=== PATIENT | female | born 1965 | race Caucasian/White ===

== ENCOUNTER 2018-01-22 01:36 | Day surgery (SDC) | payer BC ==
[2015-02-02 15:59] VITALS: Ht 162.6 cm; Wt 58.5 kg
[~2018-01-22] VITALS: Ht 162.6 cm; Wt 58.5 kg
[~2018-01-22 01:36] MED LIST: BUPR-126 PO; BUPR200T34 PO; DICL-195 PO; GABA-549 PO; LOSA100T63 PO; METH500T6 PO; MULT-1335 PO; MULT-7; QUET200T PO; TRAZ150T8 PO
[2018-01-22] MEDS ORDERED: PROPOFOL EMUL(*) 10MG/ML 20 ML 60 ML ONE (12:00)
[2018-01-22] MEDS ORDERED: LIDOCAINE MPF 1% 5 ML VIAL ONE (12:00)
[2018-01-22 12:40] VITALS: BP 87/67
[2018-01-22] MEDS ORDERED: LIDOCAINE/SOD BICARB 8.4% SYR ID ONE (12:45)
[2018-01-22] MEDS ORDERED: NORMOSOL R SOLN(*) 1000 ML BAG 1,000 ML IV PRN (12:45)
[2018-01-22] MEDS ORDERED: MIDAZOLAM 2 MG/2 ML VIAL IVP PRN (12:45)
[2018-01-22 15:30] VITALS: BP 118/71
--- NOTE | 2018-01-22 15:39 | Short(Outpt) Discharge Summary ---
Discharge Summary Reason for Hosp/Final Diag: (1) Epigastric abdominal pain Status: Chronic Hospital Course & Plan: EGD with biopsies and colonoscopy with biopsies completed without problems. (2) Diarrhea Status: Chronic Departure Discharge to: Home, Self Care Discharge Instructions Home Meds Reported Medications Methylcellulose (FIBER) 500 Mg Tablet, 500 MG PO DAILY 01/21/18 Trazodone Hcl (TRAZODONE HCL) 150 Mg Tablet, 150 MG PO QHS Y for SLEEP 01/21/18 Gabapentin (GABAPENTIN) 300 Mg Capsule, 300 MG PO TID, CAPSULE 01/21/18 Multivitamin With Minerals (MULTIPLE VITAMIN) 1 Each Tablet, 1 EACH PO DAILY, TAB 07/22/17 Bupropion HCl (Bupropion HCl ER) 200 Mg Tablet.er, 150 MG PO BIDBL 07/18/17 Losartan Potassium (COZAAR) 100 Mg Tablet, 100 MG PO QDAY 07/18/17 Diet: Regular Activity: As Tolerated Special Instructions: Arleen, my office nurse, will call you tomorrow to schedule the upper GI and small bowel follow through x-ray study with you and she'll schedule a follow up appointment to see me back in my office for after the x-ray study is completed. Problem Qualifiers (1) Diarrhea: Diarrhea type: unspecified type Qualified Codes: R19.7 - Diarrhea, unspecified LYDIA CONNOLLY MD Jan 22, 2018 15:39
[2018-01-22 15:54] VITALS: BP 140/85
[2018-01-22] MEDS ORDERED: PANT40TA65 PO (15:54)
[2018-01-22 16:21] VITALS: BP 136/86
[2018-01-22 16:45] VITALS: BP 124/81
[2018-01-22 16:47] VITALS: BP 119/85
--- NOTE | 2018-01-22 21:12 | OPERATIVE REPORT 1 ---
EVENT DATE: January 22, 2018 SURGEON: Ishaan Fink MD ANESTHESIOLOGIST: Kanu Jacques MD ANESTHESIA: TIVA. PREOPERATIVE DIAGNOSES 1. Epigastric abdominal pain. 2. Chronic diarrhea. POSTOPERATIVE DIAGNOSES 1. Epigastric abdominal pain. 2. Diarrhea. 3. Gastritis. PROCEDURES PERFORMED 1. Esophagogastroduodenoscopy with biopsies. 2. Colonoscopy with biopsies. COMPLICATIONS None. CONDITION Stable. BLOOD LOSS Minimal. FINDINGS This patient had diffuse gastritis. She also had evidence of a Kirby fundoplication which she did not report to me preoperatively. Her upper GI endoscopy procedure was otherwise unremarkable. Colonoscopy was significant only for a small polyp at the rectosigmoid junction. This was removed and sent to Pathology. Prep was excellent. SPECIMENS 1. Duodenum. 2. Pyloritek. 3. Gastric inflammation. 4. Random colon. 5. Rectum. 6. Rectosigmoid polyp. INDICATIONS This is a 52-year-old female who presented to my office with an eight-month history of epigastric abdominal pain and watery diarrhea. She had never undergone an endoscopic procedure before and was requesting to have this evaluated with the EGD and colonoscopy. DESCRIPTION OF PROCEDURE The patient was brought to the operating room and placed in the left lateral decubitus position on the procedure table. TIVA was administered, and a bite block was placed in her mouth. The endoscope was obtained and tested to make sure it was completely functional. It was lubricated and inserted into her mouth through the bite block. I advanced the scope all the way through to the third portion of the duodenum and slowly withdrew the scope as I looked at all mucosal surfaces for any abnormalities. I took two samples of the second portion of the duodenum and two samples of the duodenal bulb, and these were sent labeled duodenum. I took three samples of the gastric antrum, and these were sent for Pyloritek. I took two samples of the gastric antrum which appeared grossly inflamed, and these were sent labeled gastric inflammation. Gross inspection of the stomach revealed evidence of a previous fundoplication procedure. No other abnormalities were seen within the stomach. I withdrew the scope into the esophagus, and the GE junction was inspected. This was unremarkable. No evidence of Neal esophagus or other abnormalities. The entire esophagus looked normal, and the vocal cords looked symmetric and grossly normal. The scope was withdrawn from the mouth. Then, the colonoscope was set up and tested to ensure it was completely functional. It was lubricated and inserted directly into anus. I advanced the scope all the way through to the cecum without any problems. I slowly withdrew the scope as I slowly looked at all mucosal surfaces for any abnormalities. I did biopsies throughout the colon and sent them labeled random colon biopsies and one sample of the rectum labeled rectal biopsy. There was a small polyp at the rectosigmoid junction which I removed with a snare and then cauterized the biopsy site. I retroflexed the scope in the rectum to look at the distal rectum and upper anal canal, and this was unremarkable. I then straightened the scope out and desufflated the colon. I removed the colonoscope from her rectum. She was then transported back to the recovery area in good condition having tolerated the procedures without any apparent problems. RAMANDEEP
== END 2018-01-22 17:01 ==
LOC: OR 01:36
PROVIDERS: ATTEND Surgery
DX: K29.70 Gastritis, unspecified, without bleeding (principal)
CPT/HCPCS: 00811; 43239; 45380; 45385; 87077; 88305; 88344; J2001; J2704

== ENCOUNTER → 2018-02-02 | Outpatient (CLI) | payer BC ==
[2015-02-02 15:59] VITALS: BMI 29.9
[~2018-02-02] MED LIST changes: +BARIUM SULFATE 176 GM BTL PO ONE; +BARIUM SULFATE 340 GM POWD ONE; +PANT40TA65 PO
--- NOTE | 2018-02-02 17:41 | RADIOLOGY IMAGING REPORT ---
FACILITY: [facility] - [place] PATIENT NAME: Hiral Marcum : 1965 MR: [id number] V: [id number] EXAM DATE: ORDERING PHYSICIAN: LYDIA CONNOLLY TECHNOLOGIST: Location: [facility] - [place] Patient: Hiral Marcum : 1965 Visit/Account:[id number] Date of Sevice: 02/02/2018 Exam type: UPPER GI W/SMALL BOWEL SERIES History: Abdomen pain, diarrhea, unintentional weight loss Comparison: None. Findings: Double contrast upper GI series was performed with thick and thin barium. The patient is status post prior hiatal hernia repair. There is moderate narrowing at the distal esophagus. A 12 mm barium ta blet did not pass into readily the stomach and was only noticed to pass into the gastric fundus on th e one hour and 15 minutes small bowel image. No gastroesophageal reflux was observed. Remainder of the stomach appeared unremarkable. Barium was followed throughout the small bowel to the unremarkabl e terminal ileum. Transit time to the right-sided colon was five hours. No mucosal abnormality of t he small bowel was noted. Numerous diverticula were however identified throughout the small bowel. The fluoroscopy dose area product was 1377.12 micro-Marroquin per meter squared IMPRESSION: 1. Postsurgical changes from a prior hiatal hernia repair with moderate narrowing of the distal esop hagus. A 12 mm barium tablet did not readily pass into the stomach and was only noticed to pass into the stomach on the delayed one hour and 15 minute small bowel image. No gastroesophageal reflux was observed Numerous diverticula are seen throughout the small bowel. Transit time to the right-sided the colon was five hours Report Dictated By: Eunice Sterling MD at 02/02/2018 5:33 PM Report E-Signed By: Eunice Sterling MD at 02/02/2018 5:38 PM WSN:[email or web address]
== END ==
LOC: RAD 03:59
PROVIDERS: ATTEND Surgery
DX: K22.2 Esophageal obstruction (principal); Z98.890 Other specified postprocedural states; K57.12 Diverticulitis of small intestine without perforation or abscess without bleeding
CPT/HCPCS: 74245

== ENCOUNTER → 2018-03-13 | Outpatient (REF) | payer OTHER, BC ==
[2015-02-02 15:59] VITALS: BMI 29.9
[~2018-03-13] MED LIST changes: -BARIUM SULFATE 176 GM BTL PO ONE; -BARIUM SULFATE 340 GM POWD ONE
== END ==
PROVIDERS: ATTEND Physician Assistant Medical
DX: B35.1 Tinea unguium (principal); N39.9 Disorder of urinary system, unspecified
CPT/HCPCS: 82040; 82247; 82310; 82374; 82435; 82565; 82947; 84075; 84132; 84155; 84295; 84450; 84460; 84520; 87088; 87103; 87210; 87252

== ENCOUNTER → 2018-03-15 | Outpatient (REF) | payer OTHER, BC ==
[2015-02-02 15:59] VITALS: BMI 29.9
== END ==
PROVIDERS: ATTEND Family Medicine
DX: R30.0 Dysuria (principal)
CPT/HCPCS: 87088

== ENCOUNTER → 2018-03-15 | Outpatient (REF) | payer OTHER, BC ==
[2015-02-02 15:59] VITALS: BMI 29.9
== END ==
PROVIDERS: ATTEND Family Medicine
DX: R52 Pain, unspecified (principal); B37.9 Candidiasis, unspecified
CPT/HCPCS: 87071; 87252

== ENCOUNTER → 2019-04-05 | Outpatient (REF) | payer SELFPAY ==
[2015-02-02 15:59] VITALS: BMI 29.9
[~2019-04-05] MED LIST changes: +FLUC150T40 PO
== END ==
LOC: ZZSENDIN 18:30
PROVIDERS: ATTEND Obstetrics & Gynecology
DX: N89.8 Other specified noninflammatory disorders of vagina (principal)
CPT/HCPCS: 87210

== ENCOUNTER 2019-04-24 15:37 | Emergency (ER) | payer SELFPAY ==
[2015-02-02 15:59] VITALS: Wt 68.0 kg
[2019-04-24] MEDS ORDERED: METO50TA19 PO (15:54)
--- NOTE | 2019-04-24 15:54 | ER Report ---
History and Physical Time Seen By MD: 15:54 Hx. of Stated Complaint: nausea, just changed bp medications HPI/ROS CHIEF COMPLAINT: Nausea HISTORY OF PRESENT ILLNESS: 54-year-old female patient presents to emergency room with complaint of nausea. Patient states that she had her blood pressure medication altered on Friday of this past week. She states they added metoprolol. She states that since then she's been having nausea, diarrhea, dizziness, lightheadedness. She discussed this with her primary care provider on Friday. They recommended changing it to a nighttime dose and cut it in half. She states she's had persistent symptoms since then. She states that she is nauseated all the time, but states she is not able to vomit. She states she is not had any fevers or chills. She states she is not taking any medication for this. REVIEW OF SYSTEMS: Respiratory: No cough, no dyspnea. Cardiovascular: No chest pain, no palpitations. Gastrointestinal: As noted above Musculoskeletal: No back pain. Allergies: Coded Allergies: Penicillins (Verified Allergy, Mild, RASH, 04/24/19) Uncoded Allergies: dill weed (Allergy, Mild, 02/01/15) Home Meds Active Scripts Ondansetron 4 Mg Odt (ONDANSETRON 4 MG ODT) 4 Mg Tab.rapdis, 4 MG PO Q6H PRN for NAUSEA/VOMITING, #20 TAB Prov:JACQUIE GONZALEZ [facility] 04/24/19 Levofloxacin 500 Mg Tab (LEVAQUIN 500 MG TAB) 500 Mg Tablet, 500 MG PO DAILY, #10 TAB Prov:JACQUIE GONZALEZ [facility] 04/24/19 Omeprazole (OMEPRAZOLE) 40 Mg Capsule.dr, 40 MG PO BID, #20 CAP Prov:JACQUIE GONZALEZ [facility] 04/24/19 Metronidazole (METRONIDAZOLE) 500 Mg Tablet, 500 MG PO BID, #20 TAB Prov:JACQUIE GONZALEZ [facility] 04/24/19 Reported Medications Metoprolol Succinate (METOPROLOL SUCCINATE) 50 Mg Tab.er.24h, 1 TAB PO QDAY, TAB 04/24/19 Trazodone Hcl (TRAZODONE HCL) 150 Mg Tablet, 150 MG PO QHS PRN for SLEEP 01/21/18 Gabapentin (GABAPENTIN) 300 Mg Capsule, 300 MG PO TID, CAPSULE 01/21/18 Bupropion HCl (Bupropion HCl ER) 200 Mg Tablet.er, 150 MG PO BIDBL 07/18/17 Losartan Potassium (COZAAR) 100 Mg Tablet, 100 MG PO QDAY 07/18/17 Discontinued Scripts Fluconazole (DIFLUCAN) 150 Mg Tablet, 1 TAB PO NOW, #2 TAB Take one tab now and repeat in three days. Prov:TIANA GILES MD 04/05/19 Pantoprazole Sodium (PANTOPRAZOLE SODIUM) 40 Mg Tablet.dr, 1 TAB PO DAILY, #30 TAB 3 Refills Take 1 tablet first thing every morning and don't eat anything for 30 minutes Prov:LYDIA CONNOLLY MD 01/22/18 Past Medical/Surgical History Patient has a past medical history of angina, hypertension, hiatal hernia, kidney stones, frequent UTI, back fracture, anxiety. Patient has a surgical history of repair of hiatal hernia, EGD, cholecystectomy, surgery for an ovarian cyst, tubal ligation, surgery on fingers and toes secondary to frostbite. Reviewed Nurses Notes: Yes Hx Smoking: Yes (SMOKES 1/2 PPD SINCE AGE 17) Smoking Status: Current: Every Day Smoker Exposure to Second Hand Smoke?: No Hx Substance Use Disorder: Yes Hx Alcohol Use: No Constitutional Vital Sign - Last 24 Hours 04/24/19 15:48 Temp 97.9 Pulse 88 Resp 16 B/P (MAP) 126/92 Pulse Ox 91 Physical Exam General Appearance: The patient is alert, has no immediate need for airway protection and no current signs of toxicity. Respiratory: Chest is non tender, lungs are clear to auscultation. Cardiac: regular rate and rhythm Gastrointestinal: Abdomen is soft and non tender, no masses, bowel sounds normal. Musculoskeletal: Neck: Neck is supple and non tender. Extremities have full range of motion and are non tender. Skin: No rashes or lesions. DIFFERENTIAL DIAGNOSIS: After history and physical exam differential diagnosis was considered for nausea and vomiting including but not limited to gastroenteritis, gastritis, appendicitis, and medication side effect. Medical Decision Making Data Points Result Diagram: 04/24/19 1610 04/24/19 1610 Laboratory Hematology Test 04/24/19 15:41 04/24/19 16:10 Urine Color Yellow Urine Clarity Slightly-cloudy Urine pH 5.0 pH (4.8-9.5) Urine Specific Underwood 1.018 Urine Protein Negative mg/dL (NEGATIVE) Urine Glucose (UA) Negative mg/dL (NEGATIVE) Urine Ketones Trace mg/dL (NEGATIVE) Urine Blood Large (NEGATIVE) Urine Nitrite Positive (NEGATIVE) Urine Bilirubin Negative (NEGATIVE) Urine Urobilinogen Negative mg/dL (0.2-1.9) Urine Leukocyte Esterase Negative (NEGATIVE) Urine RBC 15 /HPF (0-2/HPF) Urine WBC 9 /HPF (0-5/HPF) Urine Squamous Epithelial Cells Many /LPF (</=FEW) Urine Bacteria Moderate /HPF (NONE-FEW) Urine Hyaline Casts Moderate /LPF (NONE-FEW) Urine Mucus Few /HPF (NONE-FEW) Urine Yeast (Budding) Few /HPF Red Blood Count 4.79 M/uL (4.17-5.56) Mean Corpuscular Volume 97.3 fL (80.0-96.0) Mean Corpuscular Hemoglobin 33.2 pg (26.0-33.0) Mean Corpuscular Hemoglobin Concent 34.1 g/dL (32.0-36.0) Red Cell Distribution Width 14.5 % (11.5-14.5) Mean Platelet Volume 7.7 fL (7.2-11.1) Neutrophils (%) (Auto) 48.4 % (39.4-72.5) Lymphocytes (%) (Auto) 43.3 % (17.6-49.6) Monocytes (%) (Auto) 6.7 % (4.1-12.4) Eosinophils (%) (Auto) 0.4 % (0.4-6.7) Basophils (%) (Auto) 1.2 % (0.3-1.4) Nucleated RBC Relative Count (auto) 0.1 /100WBC Neutrophils # (Auto) 2.7 K/uL (2.0-7.4) Lymphocytes # (Auto) 2.4 K/uL (1.3-3.6) Monocytes # (Auto) 0.4 K/uL (0.3-1.0) Eosinophils # (Auto) 0.0 K/uL (0.0-0.5) Basophils # (Auto) 0.1 K/uL (0.0-0.1) Nucleated RBC Absolute Count (auto) 0.00 K/uL Sodium Level 140 mmol/L (137-145) Potassium Level 3.9 mmol/L (3.5-5.0) Chloride Level 106 mmol/L (98-107) Carbon Dioxide Level 22 mmol/L (22-31) Blood Urea Nitrogen 11 mg/dl (7-18) Creatinine 1.00 mg/dl (0.52-1.04) Glomerular Filtration Rate Calc 58.2 Random Glucose 82 mg/dl (75-110) Calcium Level 8.8 mg/dl (8.4-10.2) Total Bilirubin 0.3 mg/dl (0.2-1.3) Aspartate Amino Transf (AST/SGOT) 84 U/L (0-35) Alanine Aminotransferase (ALT/SGPT) 57 U/L (0-56) Alkaline Phosphatase 111 U/L (0-126) Total Protein 6.8 g/dl (6.3-8.2) Albumin 4.0 g/dl (3.5-5.0) Amylase Level 59 U/L (0-110) Lipase 46 U/L (23-300) Helicobacter pylori IgG Antibody Positive (NEGATIVE) Chemistry Test 04/24/19 15:41 04/24/19 16:10 Urine Color Yellow Urine Clarity Slightly-cloudy Urine pH 5.0 pH (4.8-9.5) Urine Specific Underwood 1.018 Urine Protein Negative mg/dL (NEGATIVE) Urine Glucose (UA) Negative mg/dL (NEGATIVE) Urine Ketones Trace mg/dL (NEGATIVE) Urine Blood Large (NEGATIVE) Urine Nitrite Positive (NEGATIVE) Urine Bilirubin Negative (NEGATIVE) Urine Urobilinogen Negative mg/dL (0.2-1.9) Urine Leukocyte Esterase Negative (NEGATIVE) Urine RBC 15 /HPF (0-2/HPF) Urine WBC 9 /HPF (0-5/HPF) Urine Squamous Epithelial Cells Many /LPF (</=FEW) Urine Bacteria Moderate /HPF (NONE-FEW) Urine Hyaline Casts Moderate /LPF (NONE-FEW) Urine Mucus Few /HPF (NONE-FEW) Urine Yeast (Budding) Few /HPF White Blood Count 5.5 k/uL (4.5-11.0) Red Blood Count 4.79 M/uL (4.17-5.56) Hemoglobin 15.9 g/dL (12.0-16.0) Hematocrit 46.6 % (34.0-47.0) Mean Corpuscular Volume 97.3 fL (80.0-96.0) Mean Corpuscular Hemoglobin 33.2 pg (26.0-33.0) Mean Corpuscular Hemoglobin Concent 34.1 g/dL (32.0-36.0) Red Cell Distribution Width 14.5 % (11.5-14.5) Platelet Count 332 K/uL (150-450) Mean Platelet Volume 7.7 fL (7.2-11.1) Neutrophils (%) (Auto) 48.4 % (39.4-72.5) Lymphocytes (%) (Auto) 43.3 % (17.6-49.6) Monocytes (%) (Auto) 6.7 % (4.1-12.4) Eosinophils (%) (Auto) 0.4 % (0.4-6.7) Basophils (%) (Auto) 1.2 % (0.3-1.4) Nucleated RBC Relative Count (auto) 0.1 /100WBC Neutrophils # (Auto) 2.7 K/uL (2.0-7.4) Lymphocytes # (Auto) 2.4 K/uL (1.3-3.6) Monocytes # (Auto) 0.4 K/uL (0.3-1.0) Eosinophils # (Auto) 0.0 K/uL (0.0-0.5) Basophils # (Auto) 0.1 K/uL (0.0-0.1) Nucleated RBC Absolute Count (auto) 0.00 K/uL Glomerular Filtration Rate Calc 58.2 Calcium Level 8.8 mg/dl (8.4-10.2) Total Bilirubin 0.3 mg/dl (0.2-1.3) Aspartate Amino Transf (AST/SGOT) 84 U/L (0-35) Alanine Aminotransferase (ALT/SGPT) 57 U/L (0-56) Alkaline Phosphatase 111 U/L (0-126) Total Protein 6.8 g/dl (6.3-8.2) Albumin 4.0 g/dl (3.5-5.0) Amylase Level 59 U/L (0-110) Lipase 46 U/L (23-300) Helicobacter pylori IgG Antibody Positive (NEGATIVE) Urinalysis Test 04/24/19 15:41 Urine Color Yellow Urine Clarity Slightly-cloudy Urine pH 5.0 pH (4.8-9.5) Urine Specific Underwood 1.018 Urine Protein Negative mg/dL (NEGATIVE) Urine Glucose (UA) Negative mg/dL (NEGATIVE) Urine Ketones Trace mg/dL (NEGATIVE) Urine Blood Large (NEGATIVE) Urine Nitrite Positive (NEGATIVE) Urine Bilirubin Negative (NEGATIVE) Urine Urobilinogen Negative mg/dL (0.2-1.9) Urine Leukocyte Esterase Negative (NEGATIVE) Urine RBC 15 /HPF (0-2/HPF) Urine WBC 9 /HPF (0-5/HPF) Urine Squamous Epithelial Cells Many /LPF (</=FEW) Urine Bacteria Moderate /HPF (NONE-FEW) Urine Hyaline Casts Moderate /LPF (NONE-FEW) Urine Mucus Few /HPF (NONE-FEW) Urine Yeast (Budding) Few /HPF EKG/Imaging Imaging ACUTE ABDOMEN SERIES 3 VIEW COMPARISON: None. HISTORY: nausea Chest findings: CARDIAC/VASC: No cardiac silhouette abnormality or cardiomegaly. Unremarkable pulmonary vasculature. MEDIASTINUM: No visible mass or adenopathy. LUNGS/PLEURA: No pneumothorax. No significant pulmonary parenchymal abnormalities. No effusion or pleural thickening. BONES: No fracture or visible bony lesion. OTHER:Negative. Abdomen findings: BOWEL GAS PATTERN: Unremarkable. No abnormal dilation or deviation. Cholecystectomy clips in the right upper quadrant. No appreciable free air on the upright view. SOFT TISSUES: No masses or organomegaly. CALCIFICATIONS: None significant. No radiopaque urinary tract calculi. There are phleboliths in the pelvis bilaterally. BONES: Mild lumbar spine degenerative changes and levoscoliosis.No fractures or suspicious osseous lesions. OTHER: Negative. No abnormal gaseous collections. IMPRESSION: No acute cardiopulmonary process. Normal bowel gas pattern. Prior cholecystectomy. Report Dictated By: Phan Phan at 04/24/2019 5:08 PM Report E-Signed By: Phan Phan at 04/24/2019 5:10 PM ED Course/Re-evaluation ED Course Patient was admitted to an exam room, history and physical were obtained. Differential diagnoses were considered. On examination lungs are clear, heart is regular, abdomen is soft and nontender. An IV was started, patient received a liter of normal saline as well as 4 mg Zofran. Improvement with her nausea. A CBC, CMP, urinalysis, H. pylori, amylase, lipase, acute abdominal x-rays were done. Lab results were positive for H. pylori infection, possible urinary tract infection. She had positive nitrites, 9 white blood cells per high-power field, which did have large skin cells in her urine. We will go ahead and culture her urine. X-ray results were negative. I discussed the findings with the patient. We will go ahead and treat her for her H. pylori infection. Due to clarithromycin not having any impact on the urinary system we will go ahead and treat her with Levaquin daily for 10 days. We'll also do metronidazole, omeprazole and Zofran as needed for nausea and vomiting. I would like patient to stop taking her metoprolol. She is to increase her fluid intake. She is to follow-up with her primary care provider on Friday to discuss alternatives for her blood pressure. Patient verbalized understanding and agreement with plan. Decision to Disposition Date: April 24, 2019 Decision to Disposition Time: 17:33 Depart Departure Latest Vital Signs Vital Signs Date Time Temp Pulse Resp B/P (MAP) Pulse Ox O2 Delivery O2 Flow Rate FiO2 04/24/19 15:48 97.9 88 16 126/92 91 Impression: Primary Impression: H. pylori infection Additional Impression: UTI (urinary tract infection) Condition: Improved Disposition: HOME OR SELF-CARE New Scripts Ondansetron 4 Mg Odt (ONDANSETRON 4 MG ODT) 4 Mg Tab.rapdis 4 MG PO Q6H PRN for NAUSEA/VOMITING, #20 TAB Prov: JACQUIE GONZALEZP 04/24/19 Levofloxacin 500 Mg Tab (LEVAQUIN 500 MG TAB) 500 Mg Tablet 500 MG PO DAILY, #10 TAB Prov: JACQUIE GONZALEZP 04/24/19 Omeprazole (OMEPRAZOLE) 40 Mg Capsule.dr 40 MG PO BID, #20 CAP Prov: JACQUIE GONZALEZP 04/24/19 Metronidazole (METRONIDAZOLE) 500 Mg Tablet 500 MG PO BID, #20 TAB Prov: JACQUIE GONZALEZ 04/24/19 Patient Instructions: Helicobacter Pylori (ED) Additional Instructions: Increase fluid intake. Get plenty of rest. Follow up with your primary care provider in the next week, Friday. Return to the ER if condition worsens. Take medication as prescribed. Stop taking your metoprolol. Problem Qualifiers Additional Impression: UTI (urinary tract infection) Urinary tract infection type: acute cystitis Hematuria presence: without hematuria Qualified Codes: N30.00 - Acute cystitis without hematuria JACQUIE GONZALEZ April 24, 2019 15:54
[2019-04-24] MEDS ORDERED: NS(*) 0.9% 1000 ML BAG 1,000 ML IV ONE (16:01)
[2019-04-24] MEDS ORDERED: ONDANSETRON 4 MG/2 ML VIAL IVP ONE ×2 (16:05→17:40)
[2019-04-24 16:25] LABS: PLATELET COUNT, AUTOMATED 332 K/uL (150-450)
--- NOTE | 2019-04-24 17:14 | RADIOLOGY IMAGING REPORT ---
FACILITY: [facility] - [place] PATIENT NAME: Hiral Marcum : 1965 MR: [id number] V: [id number] EXAM DATE: ORDERING PHYSICIAN: JACQUIE GONZALEZ TECHNOLOGIST: Location: [facility] Patient: Hiral Marcum : 1965 Visit/Account:[id number] Date of Sevice: 04/24/2019 ACUTE ABDOMEN SERIES 3 VIEW COMPARISON: None. HISTORY: nausea Chest findings: CARDIAC/VASC: No cardiac silhouette abnormality or cardiomegaly. Unremarkable pulmonary vasculatu re. MEDIASTINUM: No visible mass or adenopathy. LUNGS/PLEURA: No pneumothorax. No significant pulmonary parenchymal abnormalities. No effusion or p leural thickening. BONES: No fracture or visible bony lesion. OTHER:Negative. Abdomen findings: BOWEL GAS PATTERN: Unremarkable. No abnormal dilation or deviation. Cholecystectomy clips in the r ight upper quadrant. No appreciable free air on the upright view. SOFT TISSUES: No masses or organomegaly. CALCIFICATIONS: None significant. No radiopaque urinary tract calculi. There are phleboliths in the pelvis bilaterally. BONES: Mild lumbar spine degenerative changes and levoscoliosis.No fractures or suspicious osseous l esions. OTHER: Negative. No abnormal gaseous collections. IMPRESSION: No acute cardiopulmonary process. Normal bowel gas pattern. Prior cholecystectomy. Report Dictated By: Phan Phan at 04/24/2019 5:08 PM Report E-Signed By: Phan Phan at 04/24/2019 5:10 PM WSN:[id number]
[2019-04-24 17:30] VITALS: BP 129/109
[2019-04-24] MEDS ORDERED: ONDA4TAB9 PO (17:32)
[2019-04-24] MEDS ORDERED: METR500T15 PO (17:32)
[2019-04-24] MEDS ORDERED: LEVO-85 PO (17:32)
[2019-04-24] MEDS ORDERED: OMEP40CA48 PO (17:32)
== END 2019-04-24 17:51 | disposition home or self-care (01) ==
LOC: ER 15:39
DX: B96.81 Helicobacter pylori [H. pylori] as the cause of diseases classified elsewhere (principal); N30.00 Acute cystitis without hematuria
CPT/HCPCS: 74022; 81001; 82150; 83690; 85025; 86677; 87077; 87088; 87186; 96361; 96374; 96376; 99284; J2405; J7030; 82040; 82247; 82310; 82374; 82435; 82565; 82947; 84075; 84132; 84155; 84295; 84450; 84460; 84520

== ENCOUNTER 2019-06-14 14:46 | Emergency (ER) | payer SELFPAY ==
[2015-02-02 15:59] VITALS: Wt 68.0 kg
[~2019-06-14 14:46] MED LIST changes: +LEVO-85 PO; +METO50TA19 PO; +METR500T15 PO; +OMEP40CA48 PO; +ONDA4TAB9 PO
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
[2019-06-14] MEDS ORDERED: NS(*) 0.9% 1000 ML BAG 1,000 ML IV ONE (15:28)
[2019-06-14] MEDS ORDERED: PROMETHAZINE 25 MG/ML 1 ML AMP IVP ONE ×2 (15:30→16:45)
[2019-06-14 15:36] LABS: PLATELET COUNT, AUTOMATED 245 K/uL (150-450)
--- NOTE | 2019-06-14 16:50 | RADIOLOGY IMAGING REPORT ---
FACILITY: [facility] - [place] PATIENT NAME: Hiral Marcum : 1965 MR: [id number] V: [id number] EXAM DATE: ORDERING PHYSICIAN: EM ROMAN TECHNOLOGIST: Location: [facility] - [place] Patient: Hiral Marcum : 1965 Visit/Account:[id number] Date of Sevice: 06/14/2019 Acute abdomen series: HISTORY: Severe nausea, diarrhea, intermittent abdominal pain COMPARISON: 04/24/2019 FINDINGS: Upright and supine views of the abdomen and frontal view the chest was obtained. Bowel gas pattern is nonspecific without evidence of ileus, obstruction or free air. There are no air -fluid levels. Bowel is not dilated. Surgical clips are present in the right upper quadrant. Cardiomediastinal silhouette is within normal limits. There is no infiltrate or pleural effusion. No pneumothorax. Pulmonary vasculature is normal. IMPRESSION: 1. Nonspecific bowel gas pattern. There is no evidence of ileus or obstruction. 2. No evidence of acute cardiopulmonary abnormality. Report Dictated By: Arleen Rosales MD at 06/14/2019 4:43 PM Report E-Signed By: Arleen Rosales MD at 06/14/2019 4:45 PM WSN:[id number]
[2019-06-14 17:30] VITALS: BP 139/74
[2019-06-14] MEDS ORDERED: PROM-110 PO (17:38)
[2019-06-14] MEDS ORDERED: NITR-105 PO (17:38)
[2019-06-14] MEDS ORDERED: NITROFURANTOIN MONO 100 MG PO ONE (17:40)
== END 2019-06-14 18:01 | disposition home or self-care (01) ==
LOC: ER 14:49
DX: N30.01 Acute cystitis with hematuria (principal); R11.0 Nausea
CPT/HCPCS: 74022; 81001; 83690; 85025; 96374; 96376; 99284; J2550; J7030; 82040; 82247; 82310; 82374; 82435; 82565; 82947; 84075; 84132; 84155; 84295; 84450; 84460; 84520

== ENCOUNTER 2019-06-15 05:13 | Emergency (ER) | payer SELFPAY ==
[2015-02-02 15:59] VITALS: Wt 68.0 kg
[~2019-06-15 05:13] MED LIST changes: +NITR-105 PO; +PROM-110 PO
[2019-06-15] MEDS ORDERED: diphenhydrAMINE 50 MG/ML VIAL IVP ONE (05:30)
[2019-06-15] MEDS ORDERED: NS(*) 0.9% 1000 ML BAG 1,000 ML IV ONE (05:30)
[2019-06-15] MEDS ORDERED: PROMETHAZINE HCL 12.5 MG SUPP PR ONE (05:30)
[2019-06-15] MEDS ORDERED: ONDANSETRON 4 MG ODT TABDP SL ONE (05:30)
[2019-06-15] MEDS ORDERED: cefTRIAXone(*) 1 GM VIAL 1 GM in NS(*) 0.9% 100 ML MINI-BAG 100 ML IVPB ONE (05:30)
--- NOTE | 2019-06-15 05:33 | ER Report ---
History and Physical Time Seen By MD: 05:28 Hx. of Stated Complaint: PT REPORTS INABILITY TO PUKE SINCE HAVING A SURGERY BUT REPORTS VOMITING A LITTLE. PT REPORTS DIARRHEA. HPI/ROS CHIEF COMPLAINT: Still sick, dry heaving HISTORY OF PRESENT ILLNESS: This is a 54-year-old female. She was seen here in the ER yesterday. Had nausea and dry heaving, improved with Phenergan and fluids. Diagnosed with urinary tract infection. She did not go get her medicines yesterday and now has worsened tonight. She was going to pick her medicine up today. Same symptoms as previously. Allergies: Coded Allergies: Penicillins (Verified Allergy, Mild, RASH, 06/14/19) Uncoded Allergies: dill weed (Allergy, Mild, 02/01/15) Home Meds Active Scripts Promethazine Hcl (PROMETHAZINE HCL) 25 Mg Tablet, 25 MG PO Q8H, #12 TAB Prov:EM ROMAN [facility] 06/14/19 Nitrofurantoin Monohyd/M-Cryst (MACROBID 100 MG CAPSULE) 100 Mg Capsule, 100 MG PO BID for 5 Days, #10 CAPSULE 0 Refills Prov:EM ROMAN [facility] 06/14/19 Omeprazole (OMEPRAZOLE) 40 Mg Capsule.dr, 40 MG PO BID, #20 CAP Prov:JACQUIE GONZALEZ [facility] 04/24/19 Reported Medications Trazodone Hcl (TRAZODONE HCL) 150 Mg Tablet, 150 MG PO QHS PRN for SLEEP 01/21/18 Gabapentin (GABAPENTIN) 300 Mg Capsule, 300 MG PO TID, CAPSULE 01/21/18 Losartan Potassium (COZAAR) 100 Mg Tablet, 100 MG PO QDAY 07/18/17 Discontinued Reported Medications Metoprolol Succinate (METOPROLOL SUCCINATE) 50 Mg Tab.er.24h, 1 TAB PO QDAY, TAB 04/24/19 Bupropion HCl (Bupropion HCl ER) 200 Mg Tablet.er, 150 MG PO BIDBL 07/18/17 Discontinued Scripts Ondansetron 4 Mg Odt (ONDANSETRON 4 MG ODT) 4 Mg Tab.rapdis, 4 MG PO Q6H PRN for NAUSEA/VOMITING, #20 TAB Prov:JACQUIE GONZALEZ [facility] 04/24/19 Levofloxacin 500 Mg Tab (LEVAQUIN 500 MG TAB) 500 Mg Tablet, 500 MG PO DAILY, #10 TAB Prov:JACQUIE GONZALEZ [facility] 04/24/19 Metronidazole (METRONIDAZOLE) 500 Mg Tablet, 500 MG PO BID, #20 TAB Prov:JACQUIE GONZALEZ [facility] 04/24/19 Reviewed Nurses Notes: Yes Hx Smoking: Yes (SMOKES 1/2 PPD SINCE AGE 17) Smoking Status: Current: Every Day Smoker Exposure to Second Hand Smoke?: No Hx Substance Use Disorder: Yes Hx Alcohol Use: No Constitutional Vital Sign - Last 24 Hours 06/15/19 06/15/19 06/15/19 06/15/19 05:17 05:18 05:28 05:30 Temp 98.7 Pulse 79 70 Resp 20 B/P (MAP) 154/125 (135) 154/125 179/98 (125) Pulse Ox 96 91 O2 Delivery Room Air 06/15/19 06/15/19 06/15/19 06/15/19 05:43 05:58 06:00 06:13 Pulse 58 63 65 B/P (MAP) 168/98 (121) Pulse Ox 93 94 97 06/15/19 06/15/19 06:18 06:30 Pulse 62 B/P (MAP) 168/111 (130) Pulse Ox 93 Intake and Output 06/14/19 06/14/19 06/15/19 15:02 23:02 07:02 Intake Total 1100 ml Balance 1100 ml Physical Exam General Appearance: Alert, acute distress with coughing and dry heaving with ongoing nausea. ENT: Normal oral mucosa, with moist mucous membranes. Respiratory: Chest is non tender, lungs are clear to auscultation. Cardiac: regular rate and rhythm, normal peripheral perfusion Gastrointestinal: Abdomen is soft, discomfort throughout, no masses, bowel sounds normal. No CVA tenderness. Musculoskeletal: Extremities have full range of motion. Skin: No rashes or lesions. Neuro: Alert and oriented 3. No focal deficits. DIFFERENTIAL DIAGNOSIS: After history and physical exam differential diagnosis was considered for ongoing nausea with dry heaving similar to yesterday in a patient with a urinary tract infection without treatment. We'll give her further nausea medicine. Start with an oral dissolving Zofran to help us get a IV placed and the we'll give her Phenergan and Benadryl as well as a liter of normal saline. Another urine has been sent so we can get a urine culture as it was not done yesterday. I we will go ahead and start her with one dose of IV Rocephin this morning as well and then she will get the Macrobid as prescribed yesterday. Medical Decision Making Data Points Result Diagram: 06/15/19 0547 06/15/19 0547 Laboratory Hematology Test 06/15/19 05:47 White Blood Count 5.3 k/uL (4.5-11.0) Red Blood Count 4.55 M/uL (4.17-5.56) Hemoglobin 15.4 g/dL (12.0-16.0) Hematocrit 44.1 % (34.0-47.0) Mean Corpuscular Volume 96.9 fL (80.0-96.0) H Mean Corpuscular Hemoglobin 33.7 pg (26.0-33.0) H Mean Corpuscular Hemoglobin Concent 34.8 g/dL (32.0-36.0) Red Cell Distribution Width 14.5 % (11.5-14.5) Platelet Count 224 K/uL (150-450) Mean Platelet Volume 8.0 fL (7.2-11.1) Neutrophils (%) (Auto) 72.6 % (39.4-72.5) H Lymphocytes (%) (Auto) 15.1 % (17.6-49.6) L Monocytes (%) (Auto) 11.8 % (4.1-12.4) Eosinophils (%) (Auto) 0.0 % (0.4-6.7) L Basophils (%) (Auto) 0.5 % (0.3-1.4) Nucleated RBC Relative Count (auto) 0.0 /100WBC Neutrophils # (Auto) 3.8 K/uL (2.0-7.4) Lymphocytes # (Auto) 0.8 K/uL (1.3-3.6) L Monocytes # (Auto) 0.6 K/uL (0.3-1.0) Eosinophils # (Auto) 0.0 K/uL (0.0-0.5) Basophils # (Auto) 0.0 K/uL (0.0-0.1) Nucleated RBC Absolute Count (auto) 0.00 K/uL Chemistry Test 06/15/19 05:47 Sodium Level 136 mmol/L (137-145) Potassium Level 3.7 mmol/L (3.5-5.0) Chloride Level 99 mmol/L (98-107) Carbon Dioxide Level 25 mmol/L (22-31) Blood Urea Nitrogen 14 mg/dl (7-18) Creatinine 0.90 mg/dl (0.52-1.04) Glomerular Filtration Rate Calc > 60.0 Random Glucose 165 mg/dl (75-110) Calcium Level 9.3 mg/dl (8.4-10.2) Total Bilirubin 1.8 mg/dl (0.2-1.3) Aspartate Amino Transf (AST/SGOT) 53 U/L (0-35) Alanine Aminotransferase (ALT/SGPT) 53 U/L (0-56) Alkaline Phosphatase 142 U/L (0-126) Total Protein 7.6 g/dl (6.3-8.2) Albumin 4.5 g/dl (3.5-5.0) Urinalysis Test 06/15/19 05:19 Urine Color [place]uma Urine Clarity Slightly-cloudy Urine pH 6.0 pH (4.8-9.5) Urine Specific [place] 1.020 Urine Protein 100 mg/dL (NEGATIVE) Urine Glucose (UA) Negative mg/dL (NEGATIVE) Urine Ketones 20 mg/dL (NEGATIVE) Urine Blood Negative (NEGATIVE) Urine Nitrite Negative (NEGATIVE) Urine Bilirubin Negative (NEGATIVE) Urine Urobilinogen 4.0 mg/dL (0.2-1.9) Urine Leukocyte Esterase Trace (NEGATIVE) Urine RBC 3 /HPF (0-2/HPF) Urine WBC 7 /HPF (0-5/HPF) Urine Squamous Epithelial Cells Many /LPF (</=FEW) Urine Transitional Epithelial Cells Many /LPF (NONE-FEW) Urine Bacteria Few /HPF (NONE-FEW) Urine Hyaline Casts Few /LPF (NONE-FEW) Urine Mucus Few /HPF (NONE-FEW) ED Course/Re-evaluation Clinical Indication for ER IV: Hydration, IV Access ED Course Labs show some increase in liver function tests. Recommended follow-up with primary care for repeat labs and re-evaluation to make sure she is improving. [place] much better after Phenergan and a liter of normal saline. Also gave the Rocephin. 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 Decision to Disposition Date: Jun 15, 2019 Decision to Disposition Time: 06:16 Depart Departure Latest Vital Signs Vital Signs Date Time Temp Pulse Resp B/P (MAP) Pulse Ox O2 Delivery O2 Flow Rate FiO2 06/15/19 06:30 168/111 (130) 06/15/19 06:18 62 93 06/15/19 05:18 98.7 20 Room Air Impression: Primary Impression: UTI (urinary tract infection) Additional Impression: Nausea and vomiting Condition: Improved Disposition: HOME OR SELF-CARE Patient Instructions: Urinary Tract Infection in Women (ED) Additional Instructions: Fill the prescriptions from you visit yesterday. Make sure to do that this morning. Rest and increase fluid intake. Follow-up with your regular doctor later this week or early next week for re- evaluation. Problem Qualifiers Primary Impression: UTI (urinary tract infection) Urinary tract infection type: acute cystitis Hematuria presence: without hematuria Qualified Codes: N30.00 - Acute cystitis without hematuria Additional Impression: Nausea and vomiting Vomiting type: unspecified Vomiting Intractability: non-intractable Qualified Codes: R11.2 - Nausea with vomiting, unspecified JENNIFER ARGUETA MD Jun 15, 2019 05:33
[2019-06-15] MEDS ORDERED: PROMETHAZINE 25 MG/ML 1 ML AMP IVP ONE (05:40)
[2019-06-15 06:01] LABS: PLATELET COUNT, AUTOMATED 224 K/uL (150-450)
[2019-06-15 06:30] VITALS: BP 168/111
== END 2019-06-15 06:36 | disposition home or self-care (01) ==
LOC: ER 05:19
DX: N39.0 Urinary tract infection, site not specified (principal); R11.2 Nausea with vomiting, unspecified; F17.200 Nicotine dependence, unspecified, uncomplicated
CPT/HCPCS: 81001; 85025; 87088; 96374; 96375; 99284; J0696; J1200; J2550; J7030; S0119; 82040; 82247; 82310; 82374; 82435; 82565; 82947; 84075; 84132; 84155; 84295; 84450; 84460; 84520; 96361